=== PATIENT | male | born 1945 | race Caucasian/White ===

== ENCOUNTER → 2016-07-01 | Outpatient (CLI) | payer OTHER, MEDICARE ==
--- NOTE | ~2016-07-01 | NDGEN ---
PATIENT'S NAME: FIOR ABDALLA [facility] AGE: 71 Y [address] ROOM: [place] [id number] LOCATION: [facility] ADMIT DATE: 07/01/2016 [facility] DISCHARGE DATE: FAMILY PHYSICIAN: Tyler Gee MD ATTENDING PHYSICIAN: FLORENCIA TRUJILLO PROCEDURE: NERVE CONDUCTION STUDY OF THE BILATERAL LOWER EXTREMITIES. DATE OF PROCEDURE: 07/01/2016 INDICATIONS: This is a 71-year-old male patient who has bilateral itching or tingling underneath his bilateral feet. He has normal power on dorsiflexion, plantar flexion, eversion, and inversion of the feet. He has noticeable very flat feet, but normal sensory perception to light touch and crude touch. Nerve conduction studies were performed of the bilateral peroneal and tibial motor nerves as well as the sensory nerve conductions of the sural nerve on the right and left as well as F-wave studies of the motor nerves of the lower extremities. There was normal motor onset latencies, amplitudes, as well as nerve conduction velocities seen in the bilateral peroneal and tibial motor nerves. There were normal sensory nerve conduction velocities as well as peak onset latencies in the bilateral sural nerves which is extremely good for a patient as old as 71 years old. F-wave studies were also performed and completely within normal limits. Needle EMG was not necessary based upon the patient not having any focal weakness and with a completely normal nerve conduction study. IMPRESSION: There were completely normal nerve conduction studies of the bilateral lower extremities that was not consistent with any focal neuropathy. More likely than not, the patient likely has symptoms unrelated to a neurologic process. I discussed with him the issue of skin excoriation possibly related to a fungal infection of the skin associated with some tingling, numbness, and some skin breakdown. The physical exam was not consistent with any findings of a motor sensory neuropathy as well as today's nerve conduction studies are being within completely normal limits. MD BRIAN MAGUIRE/regi PATIENT'S NAME: FIOR ABDALLA [facility] AGE: 71 Y [address] ROOM: [place] [id number] LOCATION: [facility] ADMIT DATE: 07/01/2016 Neurodiagnostics DISCHARGE DATE: FAMILY PHYSICIAN: Tyler Gee MD ATTENDING PHYSICIAN: FLORENCIA TRUJILLO /[id number] dtt: 07/14/16 1354 , DOROTEO JOHNSON dtd: 07/01/16 1935
== END | disposition disaster alternative care site (69) ==
LOC: GNEU 14:53
DX: R20.2 Paresthesia of skin (principal)